=== PATIENT | female | born 1975 | race Caucasian/White ===

== ENCOUNTER 2017-11-20 23:03 | Inpatient (IN) | payer OTHER ==
[~2017-11-20] VITALS: Ht 160 cm; Wt 73.2 kg
--- NOTE | ~2017-11-20 | ST ---
[place], [place] EXERCISE STRESS TEST REPORT NAME: MELINDA PARKINSON UNIT #: [id number] ROOM: [id number] DOCTOR: SADA DANIELLE MD BIRTHDATE: [birth year] DOS: 11/21/2017 TREADMILL STRESS TEST. REFERRING PHYSICIAN: Dr. Abdalla. INDICATION: Central chest pain. The patient underwent standard Matthew protocol exercise treadmill stress testing. Baseline EKG is normal sinus. No significant changes. Baseline heart rate 65 with blood pressure 126/78. The patient exercised for a total of 7 minutes 10 seconds reaching a maximum heart rate of 161, which represents 90% of maximum predicted. The peak blood pressure 160/98. The patient had no chest pain; however, did have dyspnea with exertion. No ST changes or arrhythmias noted. SUMMARY OF FINDINGS: 1. Negative exercise treadmill stress test to average workload. 2. Maurice Treadmill score is 7, portending low risk prognosis. 3. Please see separate report for perfusion scan results. SADA DANIELLE MD CM:STRESS:EXERCISE STRESS TEST REPORT [id number] SADA DANIELLE MD
[~2017-11-20 23:03] MED LIST: AMOXICILLIN500 MG PO; ANAPROX DS550 MG PO; BACTRIM DS 8001 TA1 PO; COLACE100 MG PO; FIORICET 325 MG1 TAB PO; IRON325 M1 PO; KEFLEX500 MG PO; MACROBID100 M1 PO; MOTRIN800 MG PO; PERCOCET 325 MG1 TA5 PO; PERCOCET 325 MG1 TA6 PO; PRENATAL1 TA1 PO
[2017-11-20 23:24] VITALS: BP 143/92
[2017-11-20 23:33] LABS: BASO % 0.4 % (0.0-1.0); EOS # 0.3 10*3/uL (0.0-0.4); EOS % 2.5 % (1.0-4.0); HEMATOCRIT 40.3 % (37.0-47.0); HEMOGLOBIN 13.6 g/dl (12.0-16.0); LYMPH # 3.2 10*3/uL (1.3-4.4); LYMPH % 30.6 % (27.0-41.0); MEAN CELL VOLUME 87.6 fl (81.0-99.0); MEAN CORPUSCULAR HGB 29.6 pg (27.0-31.0); MEAN CORPUSCULAR HGB CONC 33.7 g/dl (33.0-37.0); MEAN PLATELET VOLUME 11.1 fl (9.6-12.3); MONO # 0.6 10*3/uL (0.1-1.0); MONO % 5.3 % (3.0-9.0); NEUT # 6.3 10*3/uL (2.3-7.9); NEUT % 61.1 % (47.0-73.0); PLATELET COUNT AUTOMATED 226 10*3/uL (130-400); RED CELL DISTRI WIDTH 12.3 % (0-14.5); WHITE BLOOD COUNT 10.3 10*3/uL (4.8-10.8)
[2017-11-20 23:42] LABS: INTERNATIONAL NORM RATIO 0.9 (2.0-3.5)
[2017-11-20 23:49] LABS: ALBUMIN 3.8 gm/dl (3.1-4.5); ALKALINE PHOSPHATASE 75 U/L (45-117); BUN 10 mg/dl (7-24); CHLORIDE 111 mmol/L (98-107); CREATININE 0.73 mg/dL (0.55-1.02); POTASSIUM 4.1 mmol/L (3.5-5.1); SGOT/AST 25 IU/L (3-35); SGPT/ALT 29 U/L (12-78); SODIUM 144 mmol/L (136-145); TOTAL PROTEIN 6.9 gm/dL (6.4-8.2)
[2017-11-20 23:53] LABS: TROPONIN I < 0.015 ng/ml (<0.045)
[2017-11-21 00:57] VITALS: BP 139/71
[2017-11-21 01:00] VITALS: BP 139/71
[2017-11-21 04:00] VITALS: BP 110/70
[2017-11-21 06:57] LABS: BASO % 0.4 % (0.0-1.0); EOS # 0.2 10*3/uL (0.0-0.4); EOS % 2.9 % (1.0-4.0); HEMATOCRIT 42.6 % (37.0-47.0); HEMOGLOBIN 14.1 g/dl (12.0-16.0); LYMPH # 2.4 10*3/uL (1.3-4.4); LYMPH % 32.5 % (27.0-41.0); MEAN CELL VOLUME 89.5 fl (81.0-99.0); MEAN CORPUSCULAR HGB 29.6 pg (27.0-31.0); MEAN CORPUSCULAR HGB CONC 33.1 g/dl (33.0-37.0); MEAN PLATELET VOLUME 11.8 fl (9.6-12.3); MONO # 0.5 10*3/uL (0.1-1.0); MONO % 7.3 % (3.0-9.0); NEUT # 4.1 10*3/uL (2.3-7.9); NEUT % 56.6 % (47.0-73.0); PLATELET COUNT AUTOMATED 219 10*3/uL (130-400); RED BLOOD COUNT 4.76 10*6/uL (4.10-5.10); RED CELL DISTRI WIDTH 12.3 % (0-14.5); WHITE BLOOD COUNT 7.3 10*3/uL (4.8-10.8)
[2017-11-21 07:13] LABS: BUN 10 mg/dl (7-24); CHLORIDE 110 mmol/L (98-107); POTASSIUM 4.1 mmol/L (3.5-5.1); SODIUM 143 mmol/L (136-145)
[2017-11-21 07:26] LABS: CHOLESTEROL 146 mg/dL (<200); CREATININE 0.72 mg/dL (0.55-1.02); HDL CHOLESTEROL 43 mg/dl (40-60); LDL CHOLESTEROL 86 mg/dL (9-159); PHOSPHOROUS 3.3 mg/dL (2.5-4.9); TRIGLYCERIDES 83 mg/dl (<150); VLDL CHOLESTEROL 17 mg/dL (6-40)
[2017-11-21 08:00] VITALS: BP 113/64
[2017-11-21 12:00] VITALS: BP 134/77
[2017-11-21 16:00] VITALS: BP 126/74
== END 2017-11-21 17:00 | disposition home or self-care (01) | DRG 206 ==
LOC: ED 23:03 → 5E 11-21 00:26 → EDHOLD 11-21 00:26 → 5E 11-21 00:41
PROVIDERS: Student in an Organized Health Care Education/Training Program
PROC: 4A02XM4 Measurement of Cardiac Total Activity, External Approach (ICD-10-PCS; principal; 2017-11-21)
PROC: 3E073KZ Introduction of Other Diagnostic Substance into Coronary Artery, Percutaneous Approach (ICD-10-PCS; 2017-11-21)
DX: M94.0 Chondrocostal junction syndrome [Tietze] (principal); E87.8 Other disorders of electrolyte and fluid balance, not elsewhere classified; R00.1 Bradycardia, unspecified; R03.0 Elevated blood-pressure reading, without diagnosis of hypertension; F17.210 Nicotine dependence, cigarettes, uncomplicated; E55.9 Vitamin D deficiency, unspecified; Z71.6 Tobacco abuse counseling; Z82.49 Family history of ischemic heart disease and other diseases of the circulatory system; Z87.442 Personal history of urinary calculi; Z98.51 Tubal ligation status; Z84.89 Family history of other specified conditions; Z91.041 Radiographic dye allergy status; Z91.013 Allergy to seafood; Z79.899 Other long term (current) drug therapy

== ENCOUNTER 2020-02-25 11:50 | Emergency (ER) | payer OTHER ==
[~2020-02-25] VITALS: Ht 160 cm; Wt 72.6 kg
[2020-02-25 12:03] VITALS: BP 140/84
[2020-02-25] MEDS ORDERED: Motrin,Rufen800 MG PO (13:51)
== END 2020-02-25 14:27 | disposition home or self-care (01) ==
LOC: ED 11:50
DX: S99.921A Unspecified injury of right foot, initial encounter (principal); Z91.041 Radiographic dye allergy status; Z91.013 Allergy to seafood; W01.0XXA Fall on same level from slipping, tripping and stumbling without subsequent striking against object, initial encounter; Y93.89 Activity, other specified; Y92.89 Other specified places as the place of occurrence of the external cause; Y99.8 Other external cause status

== ENCOUNTER 2021-08-26 13:02 | Emergency (ER) | payer OTHER ==
[~2021-08-26] VITALS: Ht 160 cm; Wt 74.8 kg
[~2021-08-26 13:02] MED LIST changes: +Motrin,Rufen800 MG PO
[2021-08-26 13:17] VITALS: BP 132/62
== END 2021-08-26 19:18 | disposition left against medical advice (07) ==
LOC: ED 13:02
DX: R05.9 Cough, unspecified (principal); Z53.21 Procedure and treatment not carried out due to patient leaving prior to being seen by health care provider